=== PATIENT | male | born 1945 | race Caucasian/White ===

== ENCOUNTER 2019-07-26 12:37 | Inpatient (IN) ==
[2019-07-26] MEDS ORDERED: ENOXAPARIN 100 MG/ML SYRINGE SUBCUT STA (13:30)
[2019-07-26] MEDS ORDERED: ALBUTEROL/IPRATROPIUM 3 ML NEB RESP TX STA (13:30)
[2019-07-26] MEDS ORDERED: methylPREDNISolone SOD SUC 125 MG/2 ML VIAL IV STA (13:30)
[2019-07-26 13:37] LABS: Basophils % 0.6 % (0.0-0.8); Eosinophils # 0.1 10*3/uL (0.0-0.87); Eosinophils % 1.7 % (0.00-10.9); Hemoglobin 10.9 GM/DL (14.0-18.0); Immature Granulocytes % 0.4 %; Immature Granulocytes Absolute 0.03 #; Lymphocytes # 0.8 10*3/uL (1.4-4.0); Lymphocytes % 11.5 % (21.2-54.2); Mean Corpuscular HGB Conc 31.1 GM/DL (32-36); Monocytes % 7.7 % (1.7-12.7); Neutrophils % 78.1 % (38.7-73.9); Platelet Count 125 T/CUMM (130-400); Red Blood Count 3.61 MC/CUMM (3.8-5.5); Red Cell Distribution Width 13.2 % (9.3-17.3); White Blood Count 7.1 T/CUMM (4-12)
[2019-07-26 13:55] LABS: Platelet Estimate Adequate
[2019-07-26 14:07] LABS: Albumin 3.5 G/DL (3.4-5.0); Bilirubin,Total 0.4 MG/DL (0.2-1.0); Calcium 8.7 MG/DL (8.5-10.1); Osmolality,Calculated 275.8 MOS/KG (273-304); Total Protein 7.5 G/DL (6.4-8.3)
[2019-07-26] MEDS ORDERED: ACETAMINOPHEN 325 MG TABLET PO PRN (14:42)
[2019-07-26] MEDS ORDERED: ONDANSETRON 4 MG/2 ML VIAL IV PRN (14:42)
[2019-07-26] MEDS ORDERED: guaiFENesin/DM ER 600-30 MG TABLET PO PRN (14:42)
[2019-07-26] MEDS ORDERED: BISACODYL 5 MG TABLET PO PRN (14:42)
[2019-07-26] MEDS ORDERED: ENOXAPARIN 40 MG/0.4 ML SYRINGE SUBCUT SCH (15:00)
[2019-07-26 16:00] LABS: Risk Ratio 2.35; VLDL CHOLESTEROL 11.6 MG/DL
[2019-07-26] MEDS ORDERED: MAGNESIUM SULF RIDER 4 GM in PREMIX 1 EACH IV PRN (16:03)
[2019-07-26] MEDS ORDERED: POTASSIUM CHLORIDE 20 MEQ TABLET PO PRN (16:03)
[2019-07-26] MEDS ORDERED: MAGNESIUM SULF RIDER 2 GM in PREMIX 1 EACH IV PRN (16:03)
[2019-07-26] MEDS ORDERED: ALUMINUM/MAGNES/SIMETH MAX STR 30 ML UDCUP PO PRN (16:06)
[2019-07-26] MEDS ORDERED: MORPHINE 4 MG/1 ML VIAL IV PRN (16:06)
[2019-07-26] MEDS ORDERED: NITROGLYCERIN SL 0.4 MG TABLET SL PRN (16:06)
[2019-07-26] MEDS ORDERED: BISOPROLOL 5 MG TABLET PO SCH (16:30)
[2019-07-26] MEDS ORDERED: dilTIAZem Drip 125 MG/125 ML PREMIX IV SCH (16:30)
[2019-07-26 17:41] LABS: Apearance,Urine CLEAR (Clear); Bilirubin,Urine Negative (Negative); Blood, Urine Small mg/dL (Negative); Glucose,Urine (UA) Negative (Negative); Hyaline Casts,Urine 1 /LPF (0-3); Ketones,Urine 5 mg/dL (Negative); Mucus,Urine Occasional /LPF (Occasional); Nitrite,Urine Negative (Negative); Protein,Urine Negative; RBC,Urine 16 /HPF (0-4); Urine Color Yellow (Yellow); Urine Specific Gravity 1.016 (1.001-1.035); Urine Urobilinogen < 2.0 EU/DL (0.2-1.0); WBC,Urine 2 /HPF (0-6)
[2019-07-26] MEDS: ALBUTEROL/IPRATROPIUM 3 ML NEB RESP TX SCH (19:42)
[2019-07-26] MEDS: LEVOFLOXACIN INJ 750 MG in PREMIX 1 EACH IV SCH (19:44)
[2019-07-26] MEDS: methylPREDNISolone SOD SUC 40 MG/1 ML VIAL IV SCH ×2 (19:48→23:54)
[2019-07-26] MEDS ORDERED: ENOXAPARIN 80 MG/0.8 ML SYRINGE SUBCUT SCH (21:00)
[2019-07-26] MEDS ORDERED: SIMVASTATIN 40 MG TABLET PO SCH (21:00)
[2019-07-26] MEDS: TERAZOSIN 1 MG CAPSULE PO SCH (21:28)
[2019-07-26] MEDS: GABAPENTIN 300 MG CAPSULE PO SCH (21:28)
[2019-07-26] MEDS: AMITRIPTYLINE 25 MG TABLET PO SCH (21:29)
[2019-07-26] MEDS ORDERED: INFLUENZA VIRUS VACCINE 0.5 ML SYRINGE IM ONE (21:32)
[2019-07-27] MEDS: ALBUTEROL/IPRATROPIUM 3 ML NEB RESP TX SCH ×4 (00:05→19:58)
[2019-07-27 05:49] LABS: Basophils % 0.3 % (0.0-0.8); Hematocrit 29.6 VOL% (42.0-52.0); Hemoglobin 9.4 GM/DL (14.0-18.0); Immature Granulocytes % 0.6 %; Immature Granulocytes Absolute 0.02 #; Lymphocytes # 0.4 10*3/uL (1.4-4.0); Lymphocytes % 10.1 % (21.2-54.2); Mean Corpuscular HGB Conc 31.8 GM/DL (32-36); Mean Corpuscular Volume 96.4 FL (87-102); Mean Platelet Volume 13.1 FL (9.6-12.0); Monocytes % 1.2 % (1.7-12.7); Neutrophils % 87.8 % (38.7-73.9); Platelet Count 133 T/CUMM (130-400); Red Blood Count 3.07 MC/CUMM (3.8-5.5); Red Cell Distribution Width 13.2 % (9.3-17.3); White Blood Count 3.5 T/CUMM (4-12)
[2019-07-27 06:00] LABS: Lymphocytes 10 % (20-55); Segmented Neutrophils 90 % (50-85); Total Cells Counted 100
[2019-07-27 06:01] LABS: Hypochromasia 1+
[2019-07-27] MEDS: methylPREDNISolone SOD SUC 40 MG/1 ML VIAL IV SCH ×4 (06:03→23:31)
[2019-07-27 06:29] LABS: Calcium 8.3 MG/DL (8.5-10.1); Osmolality,Calculated 286.4 MOS/KG (273-304)
[2019-07-27] MEDS ORDERED: ASPIRIN 325 MG TABLET PO SCH (09:00)
[2019-07-27] MEDS ORDERED: ASPIRIN EC 81 MG TABLET PO SCH (09:00)
[2019-07-27] MEDS ORDERED: amLODIPine 10 MG TABLET PO SCH (09:00)
[2019-07-27] MEDS ORDERED: LOSARTAN 25 MG TABLET PO SCH (09:00)
[2019-07-27] MEDS: TERAZOSIN 1 MG CAPSULE PO SCH ×2 (09:51→21:24)
[2019-07-27] MEDS: TICAGRELOR 90 MG TABLET PO SCH ×2 (09:51→21:23)
[2019-07-27] MEDS: GABAPENTIN 300 MG CAPSULE PO SCH ×2 (09:53→21:24)
[2019-07-27] MEDS: amLODIPine 5 MG TABLET PO SCH (09:53)
[2019-07-27] MEDS: BISOPROLOL 5 MG TABLET PO SCH (09:53)
[2019-07-27] MEDS: PANTOPRAZOLE 40 MG TABLET PO SCH (09:54)
[2019-07-27] MEDS ORDERED: MAGNESIUM SULF RIDER 2 GM in PREMIX 1 EACH IV PRN (10:34)
[2019-07-27] MEDS ORDERED: POTASSIUM CHLORIDE RIDER 10 MEQ in PREMIX 1 EACH IV PRN (10:34)
[2019-07-27] MEDS ORDERED: DIAZEPAM 5 MG TABLET PO ONE (10:34)
[2019-07-27] MEDS ORDERED: diphenhydrAMINE CAP 25 MG CAPSULE PO ONE (10:34)
[2019-07-27] MEDS: SODIUM CHLORIDE 0.45% 1,000 ML IV SCH ×2 (13:13→21:21)
[2019-07-27] MEDS ORDERED: HEPARIN/NACL 0.9% 2 UNITS/ML 1,000 ML IV ONE (15:29)
[2019-07-27] MEDS ORDERED: MIDAZOLAM 2 MG/2 ML VIAL ONE (15:51)
[2019-07-27] MEDS ORDERED: fentaNYL 100 MCG/2 ML VIAL ONE (15:51)
[2019-07-27] MEDS ORDERED: LIDOCAINE 1%/EPI INJ 20 ML VIAL ONE (16:41)
[2019-07-27] MEDS: LEVOFLOXACIN INJ 750 MG in PREMIX 1 EACH IV SCH (19:07)
[2019-07-27] MEDS ORDERED: ROSUVASTATIN 20 MG TABLET PO SCH (21:00)
[2019-07-27] MEDS: AMITRIPTYLINE 25 MG TABLET PO SCH (21:24)
[2019-07-28] MEDS: ALBUTEROL/IPRATROPIUM 3 ML NEB RESP TX SCH ×2 (01:11→07:16)
[2019-07-28] MEDS: SODIUM CHLORIDE 0.45% 1,000 ML IV SCH (04:42)
[2019-07-28] MEDS: methylPREDNISolone SOD SUC 40 MG/1 ML VIAL IV SCH ×2 (04:42→11:27)
[2019-07-28 05:02] LABS: Basophils % 0.1 % (0.0-0.8); Hematocrit 30.4 VOL% (42.0-52.0); Hemoglobin 9.5 GM/DL (14.0-18.0); Immature Granulocytes % 0.6 %; Immature Granulocytes Absolute 0.08 #; Lymphocytes # 0.3 10*3/uL (1.4-4.0); Lymphocytes % 2.5 % (21.2-54.2); Mean Corpuscular HGB Conc 31.3 GM/DL (32-36); Mean Corpuscular Volume 96.5 FL (87-102); Neutrophils % 93.8 % (38.7-73.9); Platelet Count 191 T/CUMM (130-400); Red Blood Count 3.15 MC/CUMM (3.8-5.5); Red Cell Distribution Width 13.5 % (9.3-17.3); White Blood Count 12.6 T/CUMM (4-12)
[2019-07-28 05:22] LABS: Band Neutrophils 9 % (0-10); Lymphocytes 4 % (20-55); Platelet Estimate Normal; Segmented Neutrophils 84 % (50-85); Total Cells Counted 100
[2019-07-28 05:42] LABS: Calcium 8.6 MG/DL (8.5-10.1); Osmolality,Calculated 285.8 MOS/KG (273-304)
[2019-07-28] MEDS ORDERED: APIXABAN 5 MG TABLET PO SCH (09:00)
[2019-07-28] MEDS: TERAZOSIN 1 MG CAPSULE PO SCH (09:55)
[2019-07-28] MEDS: GABAPENTIN 300 MG CAPSULE PO SCH (09:55)
[2019-07-28] MEDS: BISOPROLOL 5 MG TABLET PO SCH (09:55)
[2019-07-28] MEDS: TICAGRELOR 90 MG TABLET PO SCH (09:55)
[2019-07-28] MEDS: PANTOPRAZOLE 40 MG TABLET PO SCH (09:56)
[2019-07-28] MEDS: amLODIPine 5 MG TABLET PO SCH (09:56)
[2019-07-28 12:35] VITALS: BP 120/73
[2019-07-29] MEDS ORDERED: BISOPROLOL 5 MG TABLET PO SCH (09:00)
== END 2019-07-28 14:33 | disposition home or self-care (01) | DRG 281 ==
LOC: N.ED 12:37 → N.EDINP 12:37 → N.TELES 16:44
PROVIDERS: ADMIT Internal Medicine; ATTEND Internal Medicine

== ENCOUNTER 2019-08-09 14:13 | Observation (INO) ==
[2019-08-09] MEDS ORDERED: ALBUTEROL/IPRATROPIUM 3 ML NEB RESP TX STA (14:24)
[2019-08-09 15:33] LABS: Basophils % 0.3 % (0.0-0.8); Eosinophils # 0.1 10*3/uL (0.0-0.87); Eosinophils % 0.6 % (0.00-10.9); Hematocrit 37.3 VOL% (42.0-52.0); Hemoglobin 11.3 GM/DL (14.0-18.0); Immature Granulocytes % 0.6 %; Immature Granulocytes Absolute 0.07 #; Lymphocytes # 1.2 10*3/uL (1.4-4.0); Mean Corpuscular HGB Conc 30.3 GM/DL (32-36); Mean Corpuscular Volume 96.9 FL (87-102); Mean Platelet Volume 11.9 FL (9.6-12.0); Monocytes % 7.1 % (1.7-12.7); Neutrophils % 81.4 % (38.7-73.9); Platelet Count 197 T/CUMM (130-400); Red Blood Count 3.85 MC/CUMM (3.8-5.5); White Blood Count 11.5 T/CUMM (4-12)
[2019-08-09 15:55] LABS: Albumin 3.4 G/DL (3.4-5.0); Bilirubin,Total 0.6 MG/DL (0.2-1.0); Calcium 8.3 MG/DL (8.5-10.1); Total Protein 6.9 G/DL (6.4-8.3)
[2019-08-09] MEDS ORDERED: methylPREDNISolone SOD SUC 125 MG/2 ML VIAL IV STA (17:21)
[2019-08-09] MEDS ORDERED: ONDANSETRON 4 MG/2 ML VIAL IV PRN (17:49)
[2019-08-09] MEDS ORDERED: MORPHINE 4 MG/1 ML VIAL IV PRN (17:49)
[2019-08-09] MEDS ORDERED: ACETAMINOPHEN 325 MG TABLET PO PRN (17:49)
[2019-08-09] MEDS ORDERED: DOCUSATE SODIUM 100 MG CAPSULE PO PRN (17:49)
[2019-08-09] MEDS ORDERED: MAGNESIUM SULF RIDER 4 GM in PREMIX 1 EACH IV PRN (17:49)
[2019-08-09] MEDS ORDERED: diphenhydrAMINE CAP 25 MG CAPSULE PO PRN (17:49)
[2019-08-09] MEDS ORDERED: MAGNESIUM SULF RIDER 2 GM in PREMIX 1 EACH IV PRN (17:49)
[2019-08-09] MEDS ORDERED: ZALEPLON 5 MG CAPSULE PO PRN (17:49)
[2019-08-09] MEDS ORDERED: POTASSIUM CHLORIDE 20 MEQ TABLET PO PRN (17:51)
[2019-08-09] MEDS ORDERED: ALBUTEROL 2.5 MG/3 ML NEB RESP TX PRN (17:52)
[2019-08-09] MEDS ORDERED: NITROGLYCERIN SL 0.4 MG TABLET SL PRN (17:52)
[2019-08-09] MEDS: LEVALBUTEROL 0.63 MG/3 ML NEB RESP TX SCH (19:19)
[2019-08-09] MEDS: TERAZOSIN 1 MG CAPSULE PO SCH (20:47)
[2019-08-09] MEDS: ROSUVASTATIN 20 MG TABLET PO SCH (20:47)
[2019-08-09] MEDS: AMITRIPTYLINE 25 MG TABLET PO SCH (20:48)
[2019-08-09] MEDS: GABAPENTIN 300 MG CAPSULE PO SCH (20:48)
[2019-08-09] MEDS: TICAGRELOR 90 MG TABLET PO SCH (20:48)
[2019-08-09] MEDS: APIXABAN 5 MG TABLET PO SCH (20:48)
[2019-08-10] MEDS: LEVALBUTEROL 0.63 MG/3 ML NEB RESP TX SCH ×3 (00:31→13:10)
[2019-08-10 05:49] LABS: Albumin 2.9 G/DL (3.4-5.0); Bilirubin,Total 0.9 MG/DL (0.2-1.0); Calcium 8.2 MG/DL (8.5-10.1); Osmolality,Calculated 281.5 MOS/KG (273-304); Risk Ratio 2.23; Total Protein 6.5 G/DL (6.4-8.3); VLDL CHOLESTEROL 7.6 MG/DL
[2019-08-10 05:50] LABS: Hemoglobin 10.2 GM/DL (14.0-18.0); Immature Granulocytes % 0.4 %; Immature Granulocytes Absolute 0.03 #; Lymphocytes # 0.4 10*3/uL (1.4-4.0); Lymphocytes % 6.4 % (21.2-54.2); Mean Corpuscular HGB Conc 31.9 GM/DL (32-36); Mean Corpuscular Volume 94.1 FL (87-102); Monocytes % 1.2 % (1.7-12.7); Platelet Count 113 T/CUMM (130-400); Red Cell Distribution Width 13.7 % (9.3-17.3); White Blood Count 6.7 T/CUMM (4-12)
[2019-08-10 06:05] LABS: Band Neutrophils 4 % (0-10); Lymphocytes 9 % (20-55); Segmented Neutrophils 84 % (50-85); Total Cells Counted 100
[2019-08-10 06:06] LABS: Microcytosis 1+; Ovalocytes Slight
[2019-08-10 06:53] LABS: Apearance,Urine CLEAR (Clear); Bacteria,Urine Occasional /HPF (Few); Bilirubin,Urine Negative (Negative); Blood, Urine Moderate mg/dL (Negative); Glucose,Urine (UA) 50 mg/dL (Negative); Ketones,Urine Negative (Negative); Mucus,Urine Occasional /LPF (Occasional); Nitrite,Urine Negative (Negative); Protein,Urine 100 MG/DL; RBC,Urine 57 /HPF (0-4); Urine Color Yellow (Yellow); Urine Specific Gravity 1.021 (1.001-1.035); WBC,Urine 3 /HPF (0-6)
[2019-08-10] MEDS ORDERED: BISOPROLOL 5 MG TABLET PO SCH (09:00)
[2019-08-10] MEDS: PANTOPRAZOLE 40 MG TABLET PO SCH (09:32)
[2019-08-10] MEDS: GABAPENTIN 300 MG CAPSULE PO SCH ×2 (09:33→20:26)
[2019-08-10] MEDS: ASPIRIN EC 81 MG TABLET PO SCH (09:33)
[2019-08-10] MEDS: APIXABAN 5 MG TABLET PO SCH ×2 (09:33→20:26)
[2019-08-10] MEDS: TICAGRELOR 90 MG TABLET PO SCH ×2 (09:33→20:27)
[2019-08-10] MEDS: TERAZOSIN 1 MG CAPSULE PO SCH ×2 (09:34→20:27)
[2019-08-10] MEDS: SOTALOL 80 MG TABLET PO SCH ×2 (09:34→20:26)
[2019-08-10] MEDS: methylPREDNISolone SOD SUC 40 MG/1 ML VIAL IV SCH ×2 (16:22→20:35)
[2019-08-10] MEDS: ALBUTEROL/IPRATROPIUM 3 ML NEB RESP TX SCH (19:37)
[2019-08-10] MEDS: AMITRIPTYLINE 25 MG TABLET PO SCH (20:26)
[2019-08-10] MEDS: ROSUVASTATIN 20 MG TABLET PO SCH (20:27)
[2019-08-11] MEDS: ALBUTEROL/IPRATROPIUM 3 ML NEB RESP TX SCH ×2 (00:57→06:55)
[2019-08-11] MEDS: methylPREDNISolone SOD SUC 40 MG/1 ML VIAL IV SCH ×2 (03:40→09:21)
[2019-08-11 03:58] LABS: Basophils % 0.1 % (0.0-0.8); Immature Granulocytes % 0.8 %; Immature Granulocytes Absolute 0.12 #; Lymphocytes # 0.6 10*3/uL (1.4-4.0); Mean Corpuscular HGB Conc 31.4 GM/DL (32-36); Mean Corpuscular Volume 93.8 FL (87-102); Monocytes % 2.9 % (1.7-12.7); Neutrophils % 92.2 % (38.7-73.9); Platelet Count 124 T/CUMM (130-400); Red Blood Count 3.73 MC/CUMM (3.8-5.5); Red Cell Distribution Width 13.7 % (9.3-17.3); White Blood Count 15.6 T/CUMM (4-12)
[2019-08-11 04:15] LABS: Lymphocytes 7 % (20-55); Segmented Neutrophils 91 % (50-85); Total Cells Counted 100
[2019-08-11 04:16] LABS: Microcytosis Slight; Ovalocytes Slight
[2019-08-11 04:17] LABS: Hypochromasia 1+
[2019-08-11 04:46] LABS: Albumin 3.2 G/DL (3.4-5.0); Bilirubin,Total 0.4 MG/DL (0.2-1.0); Calcium 8.4 MG/DL (8.5-10.1)
[2019-08-11] MEDS: TERAZOSIN 1 MG CAPSULE PO SCH (09:20)
[2019-08-11] MEDS: ASPIRIN EC 81 MG TABLET PO SCH (09:20)
[2019-08-11] MEDS: GABAPENTIN 300 MG CAPSULE PO SCH (09:20)
[2019-08-11] MEDS: APIXABAN 5 MG TABLET PO SCH (09:20)
[2019-08-11] MEDS: SOTALOL 80 MG TABLET PO SCH (09:20)
[2019-08-11] MEDS: PANTOPRAZOLE 40 MG TABLET PO SCH (09:20)
[2019-08-11] MEDS: TICAGRELOR 90 MG TABLET PO SCH (09:20)
[2019-08-11 12:19] VITALS: BP 146/78
== END 2019-08-11 13:20 | disposition home or self-care (01) ==
LOC: N.ED 14:13 → N.EDINP 14:13 → N.2W 18:21
PROVIDERS: ADMIT Internal Medicine Interventional Cardiology; ATTEND Internal Medicine Interventional Cardiology

== ENCOUNTER 2022-01-29 06:18 | Observation (INO) ==
[2022-01-29] MEDS ORDERED: SODIUM CHLORIDE 0.45% 1,000 ML IV SCH (07:00)
[2022-01-29 07:51] LABS: Basophils % 0.4 % (0.0-0.8); Eosinophils # 0.2 10*3/uL (0.0-0.87); Eosinophils % 2.7 % (0.00-10.9); Hematocrit 42.4 VOL% (42.0-52.0); Hemoglobin 13.5 GM/DL (14.0-18.0); Immature Granulocytes % 0.3 %; Immature Granulocytes Absolute 0.02 #; Lymphocytes # 1.3 10*3/uL (1.4-4.0); Mean Corpuscular HGB Conc 31.8 GM/DL (32-36); Mean Platelet Volume 10.8 FL (9.6-12.0); Monocytes # 0.6 10*3/uL (0.11-0.8); Neutrophils % 71.6 % (38.7-73.9); Platelet Count 163 T/CUMM (130-400); Red Blood Count 4.24 MC/CUMM (3.8-5.5); White Blood Count 7.4 T/CUMM (4-12)
[2022-01-29 08:01] LABS: INR 1.1; PT Patient Result 11.7 SECS (10.1-12.1)
[2022-01-29] MEDS ORDERED: DIAZEPAM 5 MG TABLET PO ONE (08:30)
[2022-01-29] MEDS ORDERED: MORPHINE 2 MG/1 ML SYRINGE ONE (11:10)
[2022-01-29] MEDS ORDERED: MORPHINE 2 MG/1 ML SYRINGE IV ONE (11:30)
[2022-01-29] MEDS ORDERED: hydrALAZINE 20 MG/1 ML VIAL IV PRN (16:36)
[2022-01-29] MEDS ORDERED: GLUCAGON 1 MG VIAL IM PRN (16:36)
[2022-01-29] MEDS ORDERED: ONDANSETRON 4 MG/2 ML VIAL IV PRN (16:36)
[2022-01-29] MEDS ORDERED: ACETAMINOPHEN 325 MG TABLET PO PRN (16:36)
[2022-01-29] MEDS ORDERED: ALBUTEROL 2.5 MG/3 ML NEB RESP TX PRN (16:36)
[2022-01-29] MEDS ORDERED: DEXTROSE 10% 250 ML BAG IV PRN (16:42)
[2022-01-29] MEDS ORDERED: MORPHINE 2 MG/1 ML SYRINGE IV PRN (16:51)
[2022-01-29] MEDS ORDERED: NITROGLYCERIN SL 0.4 MG TABLET SL PRN (16:51)
[2022-01-29] MEDS: TERAZOSIN 1 MG CAPSULE PO SCH (20:59)
[2022-01-29] MEDS: GABAPENTIN 300 MG CAPSULE PO SCH (20:59)
[2022-01-29] MEDS ORDERED: ATORVASTATIN 40 MG TABLET PO SCH (21:00)
[2022-01-29] MEDS ORDERED: AMITRIPTYLINE 25 MG TABLET PO SCH (21:00)
[2022-01-30 05:24] LABS: Basophils % 0.3 % (0.0-0.8); Eosinophils # 0.2 10*3/uL (0.0-0.87); Eosinophils % 1.9 % (0.00-10.9); Hematocrit 40.3 VOL% (42.0-52.0); Hemoglobin 12.9 GM/DL (14.0-18.0); Immature Granulocytes % 0.4 %; Immature Granulocytes Absolute 0.04 #; Lymphocytes # 1.7 10*3/uL (1.4-4.0); Lymphocytes % 16.9 % (21.2-54.2); Mean Corpuscular Volume 101.5 FL (87-102); Mean Platelet Volume 11.1 FL (9.6-12.0); Monocytes # 0.9 10*3/uL (0.11-0.8); Monocytes % 8.7 % (1.7-12.7); Neutrophils % 71.8 % (38.7-73.9); Platelet Count 144 T/CUMM (130-400); Red Blood Count 3.97 MC/CUMM (3.8-5.5); Red Cell Distribution Width 13.7 % (9.3-17.3); White Blood Count 9.8 T/CUMM (4-12)
[2022-01-30 05:42] LABS: Calcium 8.8 MG/DL (8.5-10.1); Osmolality,Calculated 280.5 MOS/KG (273-304); Potassium 5.1 MMOL/L (3.5-5.1)
[2022-01-30] MEDS ORDERED: PANTOPRAZOLE 40 MG TABLET PO SCH (06:00)
[2022-01-30] MEDS ORDERED: amLODIPine 5 MG TABLET PO SCH (09:00)
[2022-01-30] MEDS: GABAPENTIN 300 MG CAPSULE PO SCH (09:36)
[2022-01-30] MEDS: TERAZOSIN 1 MG CAPSULE PO SCH (09:37)
[2022-01-30 11:52] VITALS: BP 133/91
== END 2022-01-30 12:16 | disposition home or self-care (01) ==
LOC: N.5E 06:18 → N.RAD 06:18 → N.SDSINP 06:19 → N.5E 14:29
PROVIDERS: ADMIT Radiology Diagnostic Radiology; ATTEND Radiology Diagnostic Radiology
PROC: IRGDHTC (2022-01-29 07:05)